=== PATIENT | female | born 1960 | race Caucasian/White ===

== ENCOUNTER → 2018-08-03 | Outpatient (CLI) | payer OTHER ==
--- NOTE | 2018-08-05 14:50 | ECHO ---
DATE OF STUDY: 08/03/2018 HEIGHT: 5 feet 5 inches. WEIGHT: 260 pounds. REFERRING PROVIDER: Mercy Young NP INDICATION: Systemic hypertension. 2D MEASUREMENTS: LVOT: 2.0 cm Aortic root: 3.1 cm Left atrium: 4.1 cm Ventricular septum: 1.07 cm Posterior wall: 1.05 cm Left ventricle diastole: 4.8 cm Inferior vena cava: 1.7 cm DOPPLER MEASUREMENTS: Trace aortic regurgitation. Aortic valve velocity: 157 cm/s LVOT velocity: 101 cm/s Mitral deceleration time: 24.6 cm Mitral E velocity: 68.4 cm/s Mitral A velocity: 88.3 cm/s Mitral deceleration time: 261 ms Pulmonary artery systolic pressure: 21 mmHg MITRAL ANNULAR TISSUE DOPPLER: E prime septal: 6.4 cm/s E prime lateral: 8.5 cm/s DESCRIPTION: Rhythm was sinus. This was a moderately technically difficult echocardiogram. No pericardial effusion. This was a 2D, M-mode, color flow Doppler, and pulse wave Doppler examination including mitral annular tissue Doppler. CONCLUSIONS: 1. Normal left ventricle internal dimensions and wall thickness. Normal regional left ventricular (LV) wall motion and wall thickening. Normal LV systolic function. Left ventricular ejection fraction (LVEF) 65% by visual estimate. Grade 1 LV diastolic dysfunction. 2. No coarctation of the aorta. 3. Mild aortic valve sclerosis of a three-cusp aortic valve. Trace aortic regurgitation. 4. Mild left atrial dilatation.
== END ==
LOC: M CARPUL 08:21
DX: I10 Essential (primary) hypertension (principal); I50.30 Unspecified diastolic (congestive) heart failure

== ENCOUNTER → 2021-01-13 | Outpatient (CLI) | payer BC ==
[2021-01-13 09:21] LABS: BLOOD UREA NITROGEN 12 MG/DL (7-18); CALCIUM LEVEL 8.9 MG/DL (8.5-10.1); CARBON DIOXIDE LEVEL 30 MEQ/L (21-32); CHLORIDE LEVEL 106 MEQ/L (98-107); CREATININE FOR GFR 0.86 MG/DL (0.55-1.30); GLOMERULAR FILTRATION RATE > 60.0 (>51); GLUCOSE, FASTING 122 MG/DL (70-100); POTASSIUM SERUM 4.4 MEQ/L (3.5-5.1); SODIUM LEVEL 141 MEQ/L (136-145)
== END ==
LOC: M LAB 08:09
PROVIDERS: ATTEND Internal Medicine Cardiovascular Disease
DX: R94.39 Abnormal result of other cardiovascular function study (principal)

== ENCOUNTER → 2021-07-09 | Outpatient (CLI) | payer BC | LOC: M WHC 11:00 | PROVIDERS: ATTEND Nurse Practitioner | DX: N63.13 Unspecified lump in the right breast, lower outer quadrant (principal) | CPT/HCPCS: 76642; 77066; G0279 ==

== ENCOUNTER → 2022-10-07 | Outpatient (REF) | payer BC | LOC: M LAB REF 16:31 | PROVIDERS: ATTEND Physician Assistant | DX: J02.9 Acute pharyngitis, unspecified (principal) ==

== ENCOUNTER → 2023-08-24 | Outpatient (REF) | payer BC | LOC: M LAB REF 21:04 | PROVIDERS: ATTEND Physician Assistant | DX: J02.9 Acute pharyngitis, unspecified (principal) ==